=== PATIENT | female | born 1960 | race Caucasian/White ===

== ENCOUNTER → 2019-01-08 | Outpatient (CLI) | payer BC ==
--- NOTE | 2019-01-09 04:58 | RAD ---
EXAM: CHEST 2 VIEWS. HISTORY: Cough, abnormal auscultation on the left. COMPARISON: 12/13/2014. FINDINGS: Frontal and lateral views of the chest are obtained. Mild linear opacities in the left base may indicate atelectasis or mild infiltrate. There is no pneumothorax or pleural effusion. The heart is not enlarged. IMPRESSION: 1. Mild left basilar atelectasis or infiltrate. Electronically signed by: Eden Mahmood MD (01/09/2019 4:55 AM) [facility]3
== END | disposition home or self-care (01) ==
LOC: DXRAD 17:57
PROVIDERS: ATTEND Registered Nurse
DX: R05 Cough (principal); R09.89 Other specified symptoms and signs involving the circulatory and respiratory systems
CPT/HCPCS: 71046

== ENCOUNTER → 2019-01-22 | Outpatient (CLI) | payer BC ==
--- NOTE | 2019-01-22 18:17 | RAD ---
Two-view chest HISTORY: Cough, follow-up pneumonia. COMPARISON: January 08, 2019. FINDINGS: The heart size is not enlarged. No evidence of pneumothorax, pleural effusion, or consolidating infiltrate. Mild left basal markings are similar. IMPRESSION: Stable exam, no evidence of consolidating infiltrate. IMPRESSION: No evidence of consolidating infiltrate. Electronically signed by: Henri Carrion MD (01/22/2019 6:14 PM) [id number]
== END | disposition home or self-care (01) ==
LOC: DXRAD 17:04
PROVIDERS: ATTEND Registered Nurse
DX: J18.9 Pneumonia, unspecified organism (principal)
CPT/HCPCS: 71046

== ENCOUNTER → 2019-02-02 | Outpatient (CLI) | payer BC ==
--- NOTE | 2019-02-02 18:09 | RAD ---
CHEST PA LATERAL History: Cough Comparison: Two-view chest January 22, 2019. Findings: The cardiomediastinal silhouette is normal. Pulmonary vasculature is normal. The lungs are clear. No pleural effusion or pneumothorax is seen. There is no acute bone abnormality. There is degenerative endplate spurring of the thoracic spine. IMPRESSION: No acute cardiopulmonary process. Electronically signed by: Jared Chilel MD (02/02/2019 6:06 PM) [id number]
== END | disposition home or self-care (01) ==
LOC: RAD 17:42
PROVIDERS: ATTEND Registered Nurse
DX: R05 Cough (principal); M46.04 Spinal enthesopathy, thoracic region
CPT/HCPCS: 71046

== ENCOUNTER → 2019-03-12 | Outpatient (CLI) | payer BC ==
--- NOTE | 2019-03-13 08:48 | RAD ---
EXAM: CHEST 2 VIEWS. HISTORY: Shortness of breath. COMPARISON: 02/02/2019. FINDINGS: Frontal and lateral views of the chest are obtained. There are no confluent infiltrates. There is no pneumothorax or pleural effusion. The heart is not enlarged. IMPRESSION: 1. No confluent infiltrates. Electronically signed by: Eden Mahmood MD (03/13/2019 8:45 AM) [facility]
== END | disposition home or self-care (01) ==
LOC: DXRAD 17:24
PROVIDERS: ATTEND Registered Nurse
DX: R05 Cough (principal); R06.02 Shortness of breath
CPT/HCPCS: 71046

== ENCOUNTER → 2020-03-21 | Outpatient (CLI) | payer BC ==
--- NOTE | 2020-03-21 10:03 | RAD ---
EXAM: Chest, 2 views. HISTORY: Pain. COMPARISON: 03/12/2019 FINDINGS: 2 views of the chest are obtained. There is no infiltrate, pleural effusion or pneumothorax. The heart is normal in size. IMPRESSION: No acute pulmonary finding. Electronically signed by: Jennifer Turner MD (03/21/2020 10:00 AM) [id number]
--- NOTE | 2020-03-21 10:21 | RAD ---
EXAM: Lumbar spine, flexion and extension. HISTORY: Pain. Radiculopathy. COMPARISON: None. FINDINGS: Frontal, lateral, flexion and extension, bilateral oblique and coned sacral views of the lumbar spine are obtained. There is grade 1 anterolisthesis of L5 on S1, and to a lesser extent, L4 on L5. There is mild retrolisthesis at the remainder of the lumbar levels. The anterolisthesis at L4-L5 increases with flexion and decreases with extension. The anterolisthesis at L5-S1 slightly decreases with extension. There is no change in listhesis at the remainder of the levels. There is multilevel endplate remodeling. There is facet arthropathy predominantly at the lumbosacral junction. IMPRESSION: 1. Grade 1 anterolisthesis of L5 on S1, and to a lesser extent, L4 on L5. This slightly changes between flexion and extension at the L4-L5 level and slightly changes with extension at the L5-S1 level. 2. Multilevel degenerative change, primarily at the lumbosacral junction. Electronically signed by: Jennifer Turner MD (03/21/2020 10:18 AM) [id number]
== END ==
LOC: PMG 09:26
PROVIDERS: ATTEND Physician Assistant Medical
DX: M47.27 Other spondylosis with radiculopathy, lumbosacral region (principal); M43.17 Spondylolisthesis, lumbosacral region
CPT/HCPCS: 71046; 72114

== ENCOUNTER → 2020-10-19 | Outpatient (CLI) | payer BC ==
--- NOTE | 2020-10-19 08:29 | RAD ---
Chest radiograph 10/19/2020 8:18 AM INDICATION: Shortness of air, cough COMPARISON: 03/21/2020 TECHNIQUE: Frontal and lateral views of the chest are provided. FINDINGS: The cardiomediastinal silhouette is within normal limits. There are no pleural effusions. There is no pulmonary vascular congestion. There is no pneumothorax. The lungs are clear. Stable nodular high density along the anterior margin of the left first rib favo ring degenerative changes of the first rib. No significant osseous abnormality is identified. IMPRESSION: No acute cardiopulmonary process. Electronically signed by: Haily Hammond MD (10/19/2020 8:27 AM) [id number]
== END ==
LOC: RAD 08:10
PROVIDERS: ATTEND Nurse Practitioner Family
DX: R05 Cough (principal)
CPT/HCPCS: 71046